=== PATIENT | female | born 1975 | race Caucasian/White ===

== ENCOUNTER → 2016-11-11 | Outpatient (CLI) | payer OTHER ==
[~2016-11-11] MED LIST: CEPH500C PO; LEVO100T7 PO; OXYC-57 PO; SYN50 PO
--- NOTE | 2016-11-11 14:21 | MAMMOGRAPHY REPORT ---
ULTRASOUND OF BOTH BREASTS: 11/11/2016 CLINICAL HISTORY: 41-year-old female presents for follow-up of benign-appearing masses within each b reast on ultrasound. COMPARISON: Comparison is made to exams dated: 05/05/2016 ultrasound, 05/05/2016 mammogram, 11/05/2015 ultrasound, and 10/23/2015 breast MRI - [facility]. FINDINGS: Real-time high-resolution sonographic evaluation was performed in the 11:00 through 1:00 right breast, 4:00 and 9:00 axes of the left breast. In the right 11:00 breast, 1 cm from the nippl e, there are 2 adjacent anechoic tubular structures that most likely represent focal duct ectasia, m easuring 7.6 x 3.2 mm in conglomerate. In the 12:00 to 12:30 right breast, there is a lobulated hyp oechoic solid-appearing mass measuring 5.3 x 5.0 x 6.8 mm, previously measured 6.6 x 4.5 x 6.3 mm on 11/05/2015. In the 4:00 left breast, 5 cm from the nipple, a similar appearing lobulated hypoechoi c solid circumscribed mass is identified measuring 8.7 x 5.0 x 9.2 mm. A previous left breast ultra sound from 03/15/2015 demonstrated this mass measuring 10.2 x 5.0 x 7.7 mm, it is therefore consider ed unchanged. An oval parallel circumscribed hypoechoic solid-appearing mass in the left 9:00 breas t, 4 cm from the nipple, measures 6.6 x 3.2 x 6.7 mm; this previously measured 5.3 x 3.6 x 6.8 mm on 09/19/2015. IMPRESSION: ACR-BI-RADS CATEGORY 3: PROBABLY BENIGN - FOLLOW-UP RECOMMENDED There are benign appearing solid masses within the right 12:00, left 4:00 and left 9:00 breast that have been stable in size on previous ultrasounds ranging from 1 year to 18 months ago. 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 These results and recommendations were discussed with the patient at the time of the exam. She tent atively scheduled a follow-up appointment prior to leaving our department. Tosha Thornton M.D. ay/:11/11/2016 12:15:48 Branding Machine Tender: Domonique MARIANO)(Rosa), [facility] letter sent: Follow Up Recommended 3 BI-RADS Code: ACR-BI-RADS Category 3: Probably Benign
== END | disposition home or self-care (01) ==
LOC: C.MAMM 09:22
PROVIDERS: ATTEND Obstetrics & Gynecology
DX: N63 Unspecified lump in breast (principal)

== ENCOUNTER 2017-04-20 08:01 | Observation (INO) | payer OTHER ==
[2017-04-03 14:08] VITALS: BMI 29.0
[2017-04-03 14:24] LABS: BASO % 0.3 %; BASO ABS # 0.02 K/uL (0-0.2); EOS % 1.5 %; HEMATOCRIT 26.5 % (37-47); IG% 0.2 %; LYMPH % 19.1 %; LYMPH ABS # 1.13 K/uL (1.2-3.4); MEAN CELL VOLUME 73.4 fL (80-100); MEAN CORPUSCULAR HGB CONC 31.3 g/dl (32-36); MEAN PLATELET VOLUME 8.6 fL (7.4-10.4); MONO % 7.8 %; NEUT % 71.1 %; PLATELET COUNT 317 K/uL (130-400); RED BLOOD COUNT 3.61 M/uL (4.2-5.4); WHITE BLOOD COUNT 5.92 K/uL (4.8-10.8)
--- NOTE | 2017-04-03 14:37 | PAT Medication Instructions ---
Service Date Apr 03, 2017. Current Home Medication List Levothyroxine Sodium (Levothyroxine Sodium), 1 TAB PO QAM Medication Instructions For Your Scheduled Surgery - Take the following medications the morning of surgery with a sip of water: Levothyroxine Sodium (Levothyroxine Sodium), 1 TAB PO QAM If you have any questions please call us at [phone] or [phone] ( [place]) or [phone]
[2017-04-03 15:05] LABS: COMPLETE YES
[~2017-04-20] VITALS: Ht 162.6 cm; Wt 76.4 kg
[2017-04-20] VITALS (7 sets, daily range): BP systolic 91–107; BP diastolic 57–62; PULSE 70–92; TEMP 36.4–37.2; O2SAT 97–99; Ht 162.6 cm; Wt 76.4 kg
[~2017-04-20 08:01] MED LIST changes: +ACETAMINOPHEN 1000 MG/100 ML IV IV ONE; +ATROPINE SULFATE 0.1 MG/ML 5ML SYR IV PRN; +CEFAZOLIN 2000 MG/60 ML D5W IV SCH; -CEPH500C PO; +EpHEDrine SULFATE INJ 50 MG/ML AMP IV PRN; +FENTANYL CITRATE INJ 50 MCG/1 ML 2 ML VIAL IV PRN; +HYDROmorphone INJ 1 MG/ML SYR IV PRN; +LACTATED RINGER'S 1000ML 1,000 ML IV SCH; +ONDANSETRON INJ 2 MG/ML 2 ML VIAL IV PRN; -OXYC-57 PO; -SYN50 PO
[2017-04-20 08:35] LABS: HEMATOCRIT 34.6 % (37-47); MEAN CELL VOLUME 76.7 fL (80-100); MEAN CORPUSCULAR HEMOGLOBIN 23.5 pg (25-34); MEAN PLATELET VOLUME 8.8 fL (7.4-10.4); PLATELET COUNT 270 K/uL (130-400); RED BLOOD COUNT 4.51 M/uL (4.2-5.4); WHITE BLOOD COUNT 3.84 K/uL (4.8-10.8)
[2017-04-20] MEDS ORDERED: PROPOFOL IV EMULSION 10 MG/ML 20 ML VIAL IV ONE (08:38)
[2017-04-20] MEDS ORDERED: GLYCOPYRROLATE INJ 0.2 MG/ML VIAL ONE (08:38)
[2017-04-20] MEDS ORDERED: NEOSTIGMINE METHYLSULFATE 5 MG/5 ML SYR ONE (08:38)
[2017-04-20] MEDS ORDERED: DEXAMETHASONE SOD INJ 4 MG/ML VIAL ONE (08:38)
[2017-04-20] MEDS ORDERED: FLUMAZENIL 0.1 MG/1 ML 10 ML VIAL IV ONE (08:38)
[2017-04-20] MEDS ORDERED: ONDANSETRON INJ 2 MG/ML 2 ML VIAL ONE (08:38)
[2017-04-20] MEDS ORDERED: MIDAZOLAM HCL 1 MG/ML 2ML VIAL ONE (08:38)
[2017-04-20] MEDS ORDERED: LIDOCAINE HCL 2% 2 ML VIAL (20MG/ML) ONE (08:38)
[2017-04-20] MEDS ORDERED: METHYLENE BLUE 1% 10 ML VIAL ONE (08:38)
[2017-04-20] MEDS ORDERED: FENTANYL CITRATE INJ 50 MCG/1 ML 2 ML VIAL ONE ×2 (08:38→10:23)
[2017-04-20 08:43] LABS: MEAN CORPUSCULAR HGB CONC 30.6 g/dl (32-36)
--- NOTE | 2017-04-20 09:13 | History & Physical Bridge Note ---
H&P Re-Evaluation Bridge Note: I have examined the patient, reviewed the History & Physical and in the interval since the performance of the History & Physical I have noted the following changes of clinical significance: No changes noted
--- NOTE | 2017-04-20 11:37 | Medical Student: [facility] ---
Immediate Operative Summary Operative Date Apr 20, 2017. Pre-Operative Diagnosis Menorrhagia, fibroids in uterus Post-Operative Diagnosis Menorrhagia, fibroids in uterus Procedure(s) Performed Robot assisted total laproscopic hysterectomy with bilateral saplingectomy and cystoscopy Surgeon Dr. Shields Sales Department Clerk Surgeon(s) None Estimated Blood Loss 50 mL Findings Minor scatter endometriosis and bilateral ovarian adhesions.Fibroids found on uterus and within the uterus. Fluids (cc crystalloids) 600 cc Specimens Uterus and cervix with left and right fallopian tubes Drains none Anesthesia general Complication(s) None Disposition Recovery Room / PACU
[2017-04-20] MEDS ORDERED: LACTATED RINGER'S 1000ML 1,000 ML IV SCH (11:51)
--- NOTE | 2017-04-20 11:51 | [facility] Post Operative Brief Note ---
Immediate Operative Summary Operative Date Apr 20, 2017. Pre-Operative Diagnosis Leiomyoma and menorrhagia Post-Operative Diagnosis Same as pre-operative Procedure(s) Performed Robotic assisted total laparoscopic hysterectomy with bilateral salpingectomies and cystoscopy. Surgeon Dr. Tequila Shields MD Gizzard Skin Remover Surgeon(s) None Estimated Blood Loss 20ml Findings Grossly enlarged uterus with multiple fibroids, ovaries normal bilaterally, tubes normal bilaterally. Thick and thin adhesions throughout pelvis. Specimens A. Uterus, cervix, and bilateral fallopian tubes Complication(s) None Disposition Recovery Room / PACU
[2017-04-20] MEDS ORDERED: OXYC-57 PO (11:53)
--- NOTE | 2017-04-20 11:53 | Discharge Instructions ---
Discharge Instructions Date of Service Apr 20, 2017. Visit Reason for Visit: Menorrhagia, Leiomyoma Discharge Discharge Diagnosis / Problem: hysterectomy Discharge Goals Goal(s): Specific goals Activity Recommendations Activity Limitations: per Instructions/Follow-up section Anesthesia . Post Anesthesia Instructions: If you have had General Anesthesia or IV Sedation: * Do not drive today. * Resume driving when surgeon permits. * Do not make important decisions or sign legal documents today. * Call surgeon for: 1. Temperature elevations greater than 101 degrees F. 2. Uncontrollable pain. 3. Excessive bleeding. 4. Persistent nausea and vomiting. 5. Medication intolerance (nausea, vomiting or rash). * For nausea and vomiting use only clear liquids such as: tea, soda, bouillon until nausea subsides, then gradually increase diet as tolerated. * If you have any concerns or questions, call your surgeon's office. If physician is unavailable and it is an emergency, call 911 or go to the nearest emergency room. . Instructions / Follow-Up Instructions / Follow-Up POST OPERATIVE: BOWEL FUNCTION/MEDICATIONS: 1. Constipation pain and discomfort are the most common complaints 5-7 days after surgery. Points 2-6 address the things that can help. 2. Chewing gum can help stimulate the gut and help improve digestion and motility. 3. Milk of Magnesia 1-2 times per day until return of bowel function. 4. Colace is a stool softener that helps. Taking this 2-3 times per day until bowel function returns to normal is highly recommended. 5. Dulcolax is a laxative that may be used if several days have passed without a bowel movement. Alternatively Miralax may be used daily instead. 6. Drink plenty of fluids as this will also reduce constipation. 7. Narcotic pain medications will be prescribed by your physician. They are safe to use and we encourage you to use them. If you are not allergic, ibuprofen will also be prescribed. Many patients will be able to transition off of the narcotic medications to ibuprofen by postoperative day 3. ACTIVITY RECOMMENDATIONS: 1. Get plenty of rest and listen to your body. If you are tired, take a nap. 2. You may shower, but do not take a tub bath until you see your doctor at the 2 week post operative visit. 3. Absolutely NO intercourse and nothing in the vagina until you are examined by your doctor at the 6 week visit. At that visit it will be determined when such activities can be resumed. This can range from 6-12 weeks after your surgery depending on healing time. 4. The main physical activity in the first week should be walking. By the second week you can slowly increase activity. There are no limits on walking up and down stairs. 5. Do not lift more than 5-10 lbs for 4 weeks. Remember the "one-handed rule", i.e. if you can lift something with only one hand it's likely okay. 6. Minimize professor of criminal justice like vacuuming and exercising for 4 weeks. "Overdoing it" can lead to incisions not healing, pain and vaginal bleeding , so again, listen to your body. 7. Driving can be resumed when you feel able. Do not drive within 24 hours of taking a narcotic medication. EXPECTATIONS: 1. Vaginal spotting, bleeding and discharge are common after surgery. There may even be an odor to the discharge which is often related to sutures used in the vagina. If you experience heavy vaginal bleeding, call the office number day or night [phone]. 2. Bladder discomfort is common after surgery from the catheter. This usually resolves in 1-2 weeks. 3. By the end of the 3rd or 4th week you should be feeling much better. It may take up to 6 weeks for your energy levels to return to normal. 4. Narcotic medications have side effects such as: dizziness, headache, nausea and/or vomiting. If you suspect your pain medication is causing problems, call our office and we may be able to prescribe an alternate medication. 5. The skin incisions are often covered with a liquid bandage. This will gradually peel off over time. CALL THE OFFICE IF YOU HAVE ANY OF THE FOLLOWIN. Temperature of 101 degrees or higher. 2. Severe abdominal or pelvic pain not relieved by pain medication. 3. Persistent nausea or vomiting. 4. Increased pain with urination or difficulty urinating. 5. Bright red bleeding that soaks more than 1 pad per hour. CONTACT PHONE NUMBERS: Main Office: [phone] Surgical Nurse: [phone] extension [phone] FOLLOW-UP: Post-Operative Appointments: * Individual instructions will have been given about the timing of your first examination, but this is usually at the end of the second week home. * You will need to call the office at soon after discharge to make the appointment for your post-op check-up if it has not already been scheduled. * Additional information regarding activity, sexual intercourse and when to return to work will be given at this appointment. WE WISH YOU A SPEEDY RECOVERY! Diet Recommendations Recommended Home Diet: resume previous diet Procedures Procedures Performed: Robotic assisted total laparoscopic hysterectomy with bilateral salpingectomies and cystoscopy. Pending Studies Studies pending at discharge: no Medical Emergencies . Who to Call and When: Medical Emergencies: If at any time you feel your situation is an emergency, please call 911 immediately. . Non-Emergent Contact Non-Emergency issues call your: Primary Care Provider . . "Provider Documentation" section prepared by Tequila Shields. . [place] Drug Monitoring Program Search Results: no issues identified
[2017-04-20] MEDS ORDERED: PROMETHAZINE HCL INJ 25 MG in SODIUM CHLORIDE 0.9% 50ML 50 ML IV PRN (12:00)
[2017-04-20] MEDS ORDERED: SIMETHICONE 80 MG CHEW PO PRN (12:00)
[2017-04-20] MEDS ORDERED: KETOROLAC TROMETHAMINE 30 MG/ML VIAL IV. PRN ×2 (12:00→12:30)
[2017-04-20] MEDS ORDERED: MEPERIDINE HCL 50 MG/ML CARP IV PRN ×2 (12:00)
[2017-04-20] MEDS ORDERED: ACETAMINOPHEN 325 MG TAB PO PRN (12:00)
[2017-04-20] MEDS ORDERED: OXYCODONE/ACETAMINOPHEN 5-325 TAB PO PRN ×2 (12:00)
[2017-04-20] MEDS ORDERED: IBUPROFEN 600 MG TAB PO PRN (12:00)
[2017-04-20] MEDS ORDERED: PROMETHAZINE HCL INJ 12.5 MG in SODIUM CHLORIDE 0.9% 50ML 50 ML IV PRN (12:00)
[2017-04-20] MEDS ORDERED: ONDANSETRON INJ 2 MG/ML 2 ML VIAL IV PRN (12:00)
--- NOTE | 2017-04-20 12:12 | OPERATIVE REPORT ---
DATE OF OPERATION: 04/20/2017 PREOPERATIVE DIAGNOSES: Fibroids and menorrhagia. POSTOPERATIVE DIAGNOSIS: Same. PROCEDURE: Robotic assisted total laparoscopic hysterectomy with bilateral salpingectomy and cystoscopy. SURGEON: Dr. Shields. PERSONAL INJURY PARALEGAL: None. ESTIMATED BLOOD LOSS: 20 mL. FINDINGS: Grossly enlarged uterus with multiple fibroids. Ovaries are normal bilaterally. tubes are normal bilaterally. There are thick and thin adhesions throughout the pelvis. SPECIMENS: Uterus, cervix, bilateral fallopian tubes. COMPLICATIONS: None. DISPOSITION: Stable to the recovery room. DESCRIPTION OF PROCEDURE: Stacey was placed on the table in the dorsal lithotomy position with Yellofin stirrups, prepped and draped in standard sterile fashion and a hard time-out was taken prior to proceeding. A Olvera and a [employer] uterine manipulator were placed. Of note, the uterus sounded to 12 cm prior to placement. Attention was turned to the abdomen where a supraumbilical entry was made using an optical technique. This was done without complication. The patient was then insufflated and placed in Trendelenburg. A right and left lower quadrant ports were then placed under direct visualization. The uterus was immediately noted to be grossly enlarged with the greater portion of its size due to a fundal/posterior fibroid. Ovaries were noted to be normal bilaterally and tubes were normal bilaterally; however, there were significant thick and thin adhesions throughout the pelvis, specifically adhering the left tube and ovary to the posterior portion of the uterus and also a thin filmy cluster of adhesions beneath the right ovary as well. Dissection began by elevating the left fallopian tube which was dissected off the mesosalpinx. The left uteroovarian ligament was ligated and divided as was the left round ligament. Attention was then turned to the right side where the right fallopian tube was dissected off the mesosalpinx and the right uteroovarian and round ligaments were ligated and divided. The bladder flap was then created and dissection of the broad ligament was used to skeletonize the uterine arteries. These were ligated and divided bilaterally and the colpotomy was then completed circumferentially. The cervix, uterus and both fallopian tubes were then delivered through the vagina. The cuff was closed using V-Loc in a running nonlocked manner as is typical. Suction irrigation was used to clear out the pelvis of any clot and debris and to assure good hemostasis throughout the working sites. All instruments were then removed, methylene blue dye was administered IV and a cystoscopy was performed which revealed prompt bright blue jets of urine from each ureteral orifice. Bladder was drained and attention was then turned to the closure, which was completed in the typical manner with a UR-6 at the umbilicus and 4-0 Monocryl and glue at the surgical sites. I attest to the content of the Intraoperative Record and any orders documented therein. Any exception s are noted below.
--- NOTE | 2017-04-20 12:52 | Anesthesiology Progress Note ---
Anesthesia Post Op Note Date & Time Apr 20, 2017 at 12:52 Vital Signs Pain Intensity: 4 Vital Signs Past 12 Hours Date Time Temp Pulse Resp B/P (MAP) Pulse Ox O2 Delivery O2 Flow Rate FiO2 04/20/17 12:40 36.3 75 20 89/53 (66) 97 Room Air 04/20/17 12:30 68 20 95/51 (67) 97 Room Air 04/20/17 12:20 68 20 96/44 (62) 97 Room Air 04/20/17 12:10 68 18 96/54 (68) 97 Room Air 04/20/17 12:00 67 22 99/50 (65) 100 Mask 10 04/20/17 11:50 36.5 67 20 103/50 100 Mask 10 04/20/17 11:40 70 18 109/47 100 Mask 10 04/20/17 11:30 66 20 110/53 100 Mask 10 04/20/17 11:22 36.2 84 25 107/52 100 Mask 10 04/20/17 08:20 37.2 76 20 99/57 (71) 99 Room Air Notes Mental Status: alert / awake / arousable, participated in evaluation Pt Amnestic to Procedure: Yes Nausea / Vomiting: adequately controlled Pain: adequately controlled Airway Patency, RR, SpO2: stable & adequate BP & HR: stable & adequate Hydration State: stable & adequate Anesthetic Complications: no major complications apparent
[2017-04-20] MEDS ORDERED: IV FLUIDS COMPLETED PRN (14:00)
[2017-04-20 17:00] LABS: HEMATOCRIT 30.8 % (37-47)
[2017-04-20] MEDS ORDERED: DOCUSATE SODIUM 100 MG CAP PO SCH (21:00)
== END 2017-04-20 19:17 | disposition home or self-care (01) ==
LOC: C.ACU 08:01 → C.MS4N 09:00
PROVIDERS: ADMIT Obstetrics & Gynecology; ATTEND Obstetrics & Gynecology
DX: N92.0 Excessive and frequent menstruation with regular cycle (principal); D25.9 Leiomyoma of uterus, unspecified; D21.9 Benign neoplasm of connective and other soft tissue, unspecified; E06.3 Autoimmune thyroiditis; E03.9 Hypothyroidism, unspecified; Z80.3 Family history of malignant neoplasm of breast; Z83.3 Family history of diabetes mellitus
CPT/HCPCS: 58571; S2900

== ENCOUNTER → 2017-05-22 | Outpatient (CLI) | payer OTHER ==
[~2017-05-22] MED LIST changes: -ACETAMINOPHEN 1000 MG/100 ML IV IV ONE; -ATROPINE SULFATE 0.1 MG/ML 5ML SYR IV PRN; -CEFAZOLIN 2000 MG/60 ML D5W IV SCH; -EpHEDrine SULFATE INJ 50 MG/ML AMP IV PRN; -FENTANYL CITRATE INJ 50 MCG/1 ML 2 ML VIAL IV PRN; -HYDROmorphone INJ 1 MG/ML SYR IV PRN; -LACTATED RINGER'S 1000ML 1,000 ML IV SCH; -ONDANSETRON INJ 2 MG/ML 2 ML VIAL IV PRN; +OXYC-57 PO
--- NOTE | 2017-05-25 08:12 | MAMMOGRAPHY REPORT ---
BILATERAL DIGITAL DIAGNOSTIC MAMMOGRAM TOMOSYNTHESIS WITH CAD AND TARGETED BILATERAL ULTRASOUND: 05/22 CLINICAL HISTORY: Six-month follow-up of bilateral breast masses. The patient reports no current com plaints. TECHNIQUE: Breast tomosynthesis in addition to standard 2D mammography was performed. Current study was also evaluated with a Computer Aided Detection (CAD) system. Bilateral CC and MLO 2-D and tomosy nthesis images were obtained. COMPARISON: Comparison is made to exams dated: 05/05/2016 ultrasound, 11/11/2016 ultrasound, 05/05/2016 mammogram, 11/05/2015 ultrasound, 10/23/2015 breast MRI, and 09/19/2015 ultrasound - [facility]. BREAST COMPOSITION: The tissue of both breasts is heterogeneously dense, which may obscure small mas ses. FINDINGS: There are no suspicious masses, calcifications, or areas of architectural distortion noted in either breast. There has been no significant interval change compared to prior exams. 2 circums cribed benign-appearing 9 and 10 mm masses in the left lateral breast are not significantly changed d ating back to the August and February 2015 exams, and considered benign given long-term stability. Targeted ultrasound was performed of the area of the previously seen masses. In the right 11:[address], 1 cm from the nipple, again noted is benign focal duct ectasia measuring 5 x 7 mm. In the right 12:00 breast, 4 cm from the nipple, there is a hypoechoic circumscribed mass which measures 6 x 5 x 7 mm, not significantly changed dating back to the October 2015 exam where the mass measured 7 x 5 x 6 mm. Given 1.5 years of stability, the mass is probably benign. In the left 9:00 breast, 4 cm from the nipple, there is an oval circumscribed hypoechoic mass which m easures 7 x 3 x 7 mm, not significantly changed dating back to the August 2015 exam where the mass measured 5 x 4 x 7 mm. Given over 1.5 years of stability, the mass is probably benign. In the left breast at 4:00, 5 cm from the nipple, again noted is a lobulated circumscribed mass which measures 9 x 6 x 9 mm, not significantly changed dating back to the February 2015 exam where the mass measured 10 x 5 x 8 mm. Given the stability for over 2 years, the left 4:00 mass is benign and likely represents a fibroadenoma. The other 2 masses in the right 12:00 breast and left 9:00 breast are probably benign and likely also represent fibroadenomas. IMPRESSION: ACR-BI-RADS CATEGORY 3: PROBABLY BENIGN, TARGETED ULTRASOUND ACR-BI-RADS CATEGORY 3: PRO BABLY BENIGN Hypoechoic mass in the left 4:00 breast is stable for over 2 years and is therefore considered benign and felt to represent a fibroadenoma. 2 other similar appearing hypoechoic masses in the left 9:00 and right 12:00 breast are probably benign and likely also represent fibroadenomas although longer st ability is needed. Recommend bilateral diagnostic tomosynthesis mammograms and ultrasound in 12 raman hs to confirm longer stability of the right 12:00 and left 9:00 breast masses. The patient has been verbally notified of the results. Approximately 10% of breast cancers are not detected with mammography. A negative mammographic report should not delay biopsy if a clinically suggestive mass is present. Zulma Weeks M.D. ah/:05/22/2017 11:55:49 Church Secretary: Katy BATES(R)(M), [facility] letter sent: Follow Up Recommended 3 BI-RADS Code: ACR-BI-RADS Category 3: Probably Benign Ultrasound BI-RADS: ACR-BI-RADS Category 3: Pr obably Benign
== END | disposition home or self-care (01) ==
LOC: C.MAMM 10:37
PROVIDERS: ATTEND Obstetrics & Gynecology
DX: R92.2 Inconclusive mammogram (principal); N63 Unspecified lump in breast

== ENCOUNTER → 2018-05-25 | Outpatient (CLI) | payer OTHER ==
[~2018-05-25] MED LIST changes: -OXYC-57 PO
--- NOTE | 2018-05-25 15:21 | MAMMOGRAPHY REPORT ---
BILATERAL DIGITAL DIAGNOSTIC MAMMOGRAM TOMOSYNTHESIS WITH CAD AND BILATERAL ULTRASOUND: 05/25/2018 CLINICAL HISTORY: 42-year-old woman presents at time of annual bilateral screening mammograms. Also c ontinued close ultrasound follow-up of benign-appearing masses in the right breast at 12:00 and left breast at 9:00. Patient has a history of fibroadenoma excision from the left breast. TECHNIQUE: Bilateral CC and MLO 2D and tomosynthesis images were obtained. Current study was also ev aluated with a Computer Aided Detection (CAD) system. COMPARISON: Comparison is made to exams dated: 05/22/2017 mammogram, 11/11/2016 ultrasound, 05/05/2016 mammogram, 09/19/2015 mammogram, 09/06/2014 mammogram, and 08/27/2012 mammogram - [facility]. BREAST COMPOSITION: The tissue of both breasts is heterogeneously dense, which may obscure small mass es. FINDINGS: There are 2 circumscribed oval masses in the lateral left breast, that appear visually stab le dating back to 2014. Current measurements from the tomosynthesis images demonstrate the more late ral mass is 5.5 x 9.6 mm in the CC projection, and the slightly more medial mass is 11.0 x 5.4 mm in the CC projection, in which the mammographic measurements are unchanged dating back to at least 2015. No new suspicious masses, asymmetries, calcifications or areas of architectural distortion are seen bilaterally. The mass in the 12:00 right breast is not conspicuous on the current mammograms. Further evaluation with ultrasound was performed in each breast. Targeted ultrasound was performed in the right breast at 12:00 and left breast at 9:00 to reassess th e probably benign solid-appearing masses. In the right 12:00 axis, 4 cm from the nipple, there is a gently lobulated hypoechoic solid-appearing mass measuring 4.7 x 5.1 by 7.9 mm. This is unchanged da ting back to at least May 05, 2016, at which time it measured 5.0 x 5.1 by 8.0 mm, given slight diff erences in measuring technique. With 2 years of stability, this now confirms benignity. In the left 9:00 breast, 4 cm from the nipple, there is an oval parallel circumscribed hypoechoic solid-appearin g mass measuring 6.8 x 2.9 x 7.1 mm, previously measured 6.9 x 3.3 x 7.1 mm on May 05, 2016. With 2 years of stability this also confirms benignity. Given that no new suspicious mammographic findings were identified, and all of the previously describ ed masses have been stable mammographically and on ultrasound for at least 2 years, can now return to annual screening mammography schedule. IMPRESSION: ACR BI-RADS CATEGORY 2: BENIGN, ULTRASOUND ACR BI-RADS CATEGORY 2: BENIGN Stable mammographic and targeted sonographic appearance of the breasts, including benign-appearing ma sses in the lateral left breast mammographically, and benign-appearing solid masses in the 9:00 left breast and 12:00 right breast on ultrasound. As all of these findings have been stable for at least 2 years, they are considered benign and recommend return to annual screening mammography schedule, d ue in April 2019. These results and recommendations were discussed with the patient at the time of the exam. Some breast cancers are not detected with mammography. A negative mammographic report should not vivek y biopsy if a clinically suggestive mass is present. Tosha Thornton M.D. ay/:05/25/2018 12:09:47 Tool Design Engineer: RT Susan(Yuni)(M), [facility] letter sent: Normal 1/2 OVERALL STUDY BIRADS: 2 Benign
== END | disposition home or self-care (01) ==
LOC: C.MAMM 10:48
PROVIDERS: ATTEND Obstetrics & Gynecology
DX: N63.20 Unspecified lump in the left breast, unspecified quadrant (principal); N63.10 Unspecified lump in the right breast, unspecified quadrant